=== PATIENT | female | born 1985 | race Caucasian/White ===

== ENCOUNTER → 2018-11-01 | Outpatient (CLI) | payer SELFPAY ==
--- NOTE | 2018-11-01 16:04 | RADIOLOGY REPORT (SQ) ---
EXAM DESCRIPTION: U/S [id number] TRNABD 1GES W/ODOP COMPLETED DATE/TIME: 11/01/2018 3:29 pm REASON FOR STUDY: Z34.81 ENCOUNTER FOR SUPRVSN OF NORMAL , FIRST TRIMESTER Z34.81 ENCOUNTE R FOR SUPRVSN OF NORMAL , FIRST TRIM COMPARISON: None. TECHNIQUE: Transabdominal static and realtime grayscale images acquired of the pelvis. Additional se lected spectral and color Doppler images recorded. All images stored on PACs. bHCG: Not available. CLINICAL DATES: 8 weeks 6 days LIMITATIONS: None. FINDINGS: FETUS: Single Living intrauterine . ULTRASOUND EGA: 8 weeks 4 days ULTRASOUND HEMA: 06/09/2019 EFW: Not applicable less than 20 weeks. CRL: 2.0 cm FHR: 175 beats per minute. SURVEY: No visualized anomalies. AMNIOTIC FLUID: Adequate amount. PLACENTA: Not yet developed due to early gestation. SUBCHORIONIC BLEED: No. SIZE OF BLEED: Not applicable. UTERUS: No masses. No anomalies. CERVICAL LENGTH: 5.3 cm. Closed. RIGHT ADNEXA: Normal ovary with normal vascular flow. No adnexal free fluid. 5 cm cyst. LEFT ADNEXA: Normal ovary with normal vascular flow. No adnexal free fluid. No adnexal masses. FREE FLUID: None. OTHER: No other significant finding. IMPRESSION: LIVING INTRAUTERINE . EGA 8 weeks 4 days. Trimester of : First - 0 to 13 weeks. TECHNICAL DOCUMENTATION: JOB ID: [id number] [employer]- All Rights Reserved Reading location - IP/workstation name: [email or web address]
== END ==
LOC: RAD 16:24
PROVIDERS: ATTEND Midwife
DX: Z34.81 Encounter for supervision of other normal pregnancy, first trimester (principal)
CPT/HCPCS: 76801

== ENCOUNTER 2019-06-02 05:07 | Inpatient (IN) | payer MEDICAID ==
[2019-05-30 11:53] LABS: ABSOLUTE EOSINOPHILS # (AUTO) 0.2 10^3/uL (0.0-0.6); ABSOLUTE LYMPHOCYTES (AUTO) 2.2 10^3/uL (0.5-4.7); ABSOLUTE MONOCYTES (AUTO) 0.8 10^3/uL (0.1-1.4); ABSOLUTE NEUT (AUTO) 10.9 10^3/uL (1.7-8.2); BASOPHILS % (AUTO) 0.3 % (0-2); EOSINOPHILS % (AUTO) 1.1 % (0-6); HEMATOCRIT 35.3 % (36.0-47.0); HEMOGLOBIN 12.2 g/dL (12.0-15.5); LYMPHOCYTES % (AUTO) 15.4 % (13-45); MEAN CORPUSCULAR HEMOGLOBIN 31.8 pg (27.0-33.4); MEAN CORPUSCULAR HGB CONC 34.5 g/dL (32.0-36.0); MEAN CORPUSCULAR VOLUME 92 fl (80-97); MONOCYTES % (AUTO) 5.9 % (3-13); PLATELET COUNT 320 10^3/uL (150-450); RED BLOOD COUNT 3.82 10^6/uL (3.72-5.28); RED CELL DISTRIBUTION WIDTH 13.8 % (11.5-14.0); SEGMENTED NEUTROPHILS % (AUTO) 77.3 % (42-78); TOTAL CELLS COUNTED % (AUTO) 100 %
[2019-05-30 11:56] LABS: APPEARANCE,URINE SLIGHTLY-CLOUDY; BILIRUBIN,URINE NEGATIVE (NEGATIVE); COLOR,URINE YELLOW; GLUCOSE, URINE NEGATIVE (NEGATIVE); KETONES,URINE TRACE mg/dL (NEGATIVE); LEUKOCYTE ESTERASE,URINE NEGATIVE (NEGATIVE); NITRITE,URINE NEGATIVE (NEGATIVE); PROTEIN,URINE NEGATIVE (NEGATIVE); URINE SPECIFIC GRAVITY 1.015; UROBILINOGEN,URINE NEGATIVE mg/dL (<2.0)
[2019-05-30 12:14] LABS: URINE AMPHETAMINES SCREEN NEGATIVE; URINE BARBITURATES SCREEN NEGATIVE; URINE BENZODIAZEPINES SCREEN NEGATIVE; URINE COCAINE SCREEN NEGATIVE; URINE MARIJUANA (THC) SCREEN NEGATIVE; URINE METHADONE SCREEN NEGATIVE; URINE PHENCYCLIDINE SCREEN NEGATIVE
[~2019-06-02 05:07] MED LIST: CEFAZOLIN SODIUM 2 GM in DEXTROSE 5%-WATER 100 ML IV PRN; LACTATED RINGERS 1000 ML IV PRN; LIDOCAINE 0.5% INJ-PF (5 MG/ML) 50 ML SDV SUBCUT PRN; RINGERS SOLUTION,LACTATED 1,000 ML IV PRN
[2019-06-02] MEDS ORDERED: OXYTOCIN 10 UNIT/ML VIAL ONE (07:25)
[2019-06-02] MEDS ORDERED: MIDAZOLAM 2 MG/2 ML INJ ONE (07:25)
[2019-06-02] MEDS ORDERED: EPHEDRINE SULFATE INJ 50 MG/1 ML AMPULE ONE (07:25)
[2019-06-02] MEDS ORDERED: FENTANYL CITRATE INJ/PF 100 MCG/2 ML AMPUL ONE ×2 (07:25→10:26)
[2019-06-02] MEDS ORDERED: PROPOFOL INJ 200 MG/20 ML VIAL IV ONE (07:26)
[2019-06-02] MEDS ORDERED: DIPHENHYDRAMINE HCL 50 MG/ML VIAL IV PRN (08:40)
[2019-06-02] MEDS ORDERED: MORPHINE SULFATE 10 MG/ML INJ IV PRN (08:40)
[2019-06-02] MEDS ORDERED: OXYCODONE-ACETAMINOPHEN 5-325 MG TABLET PO PRN ×3 (08:40→09:02)
[2019-06-02] MEDS ORDERED: PROMETHAZINE HCL INJ 25 MG/1 ML VIAL IV PRN ×3 (08:40→09:02)
[2019-06-02] MEDS ORDERED: MEPERIDINE HCL/PF INJ 25 MG/1 ML DISP.SYRIN IV PRN (08:40)
[2019-06-02] MEDS ORDERED: ONDANSETRON HCL INJ/PF 4 MG/2 ML SDV IV PRN (08:40)
[2019-06-02] MEDS ORDERED: FENTANYL CITRATE INJ/PF 100 MCG/2 ML AMPUL IV PRN ×3 (08:40)
[2019-06-02] MEDS ORDERED: OXYTOCIN/NORMAL SALINE 20 UNIT/1,000 ML RTUINJ IV PRN (09:02)
[2019-06-02] MEDS ORDERED: ACETAMINOPHEN 325 MG TABLET PO PRN (09:02)
[2019-06-02] MEDS ORDERED: SIMETHICONE 80 MG TAB.CHEW PO PRN (09:02)
[2019-06-02] MEDS ORDERED: DIPH/PERTUSS(ACELL)/TETANUS VAC/PF 0.5 ML SYR (>=10YO) IM PRN (09:02)
[2019-06-02] MEDS ORDERED: RINGERS SOLUTION,LACTATED 1,000 ML IV PRN (09:02)
[2019-06-02] MEDS ORDERED: HYDROMORPHONE HCL INJ/PF 2 MG/ML AMPULE IV PRN (09:02)
[2019-06-02] MEDS ORDERED: MEASLES,MUMPS&RUBELLA VACC/PF 0.5 ML VIAL SUBCUT PRN (09:02)
[2019-06-02] MEDS ORDERED: ACETAMINOPHEN 1,000 MG/100 ML RTUPB IV PRN (09:02)
--- NOTE | 2019-06-02 09:13 | PDOC DELIVERY SUMMARY ---
Delivery Summary - Maternal Hx : III Hx # Term Pregnancies: 1 Hx # Pregnancies: 0 Hx Total # of Abortions (Sponateous & Elective): 1 HEMA: 06/07/19 Gestational Age: 39.2 Ruptured Membranes: AROM Time of Rupture: 08:22 Fluids: Clear - Delivery Presentation: Vertex Heart Rate Monitoring: Done Pre-Operatively Support Person Present: Yes Location: OR : Scheduled, Repeat Placenta: Within Normal Limits Delivery of Placenta Date: 06/02/19 Delivery of Placenta Time: 08:23 - Medications Type of Anesthesia:: Spinal - Infant Assess and Care Baby 1 Male Delivery of Infant Date: 06/02/19 Delivery of Time: 08:23 at 1 minute: 9 at 5 minutes: 9 Preprinted Number On Band: [id number] Infant Skin to Skin: Yes Skin to Skin (Mins): 5 To Nursery At: 08:34 Mode of Transport: Bassinet Infant Delivery Weight: 3,900 Delivery Length: 21 in - Delivery Personnel [employer] [employer] Member: ABHISHEK COLIN RN: MAMTA GLASS MD: CHRIS CLEARY
--- NOTE | 2019-06-02 09:13 | Operative Report ---
Operative Report DATE OF SURGERY: 06/02/19 PREOPERATIVE DIAGNOSIS: Pt desires a repeat POSTOPERATIVE DIAGNOSIS: same OPERATION: Repeat c section via low transvers incision. SURGEON: CHRIS CLEARY ANESTHESIA: Spinal TISSUE REMOVED OR ALTERED: placenta COMPLICATIONS: low uterine segment adhered to anterior abdominal wall ESTIMATED BLOOD LOSS: 250 INTRAOPERATIVE FINDINGS: Low uterine segment adhered to the anterior abdominal wall PROCEDURE: Patient was taken to the OR and placed in supine position after her spinal anesthesia. She is prepared and draped in sterile fashion. Infante was placed for drainage of the bladder. Low transverse incision was made and carried down the level of the fascia. The fascial incision was made with knife and extended bilaterally with curved Brock scissors. The fascia was off the rectus muscles using sharp and blunt dissection. The rectus muscles are in the midline. There was no separation between the peritoneum and the uterine wall. Dissection was carried out the uterus from the anterior abdominal wall taking care not to injure bladder. Bladder blade was placed in uterine segment was identified. A low transverse incision was made creating a bladder flap. Bladder blade was placed low transverse uterine incision was made with the knife and extended with fingertips. The baby was delivered with some fundal pressure. Mouth and nose were suctioned free. The cord is doubly clamped and cut. Baby is passed off to the legal billing specialist in attendance. The placenta was manually extracted with trailing membranes. The uterus was externalized wrapped in a moist lap sponge. Uterine contents wiped free. U terus was closed with a running locking layer of 0 chromic suture using the second layer to imbricate the first completing a double layer closure of the uterus. The serosa was closed as much as possible with a 2-0 chromic suture. Interceed was placed over the low uterine segment to try to prevent further adhesion. The pelvis was irrigated and suctioned free of fluid the uterus was replaced in the abdomen. The abdominal wall peritoneum was closed with running 2-0 chromic stitch. Fascia was closed with a running 0 Vicryl in 2 segments. Aisha's layer was brought together with 0 plain gut stitch and the skin was closed with running subcuticular 4-0 undyed Vicryl stitch. The wound was dressed mother and baby did well.
[2019-06-02] MEDS ORDERED: KETOROLAC TROMETHAMINE INJ/PF 30 MG/1 ML SDV ONE (09:26)
[2019-06-02] MEDS ORDERED: ACETAMINOPHEN 1,000 MG/100 ML RTUPB IV ONE (09:26)
[2019-06-02] MEDS: KETOROLAC TROMETHAMINE INJ/PF 30 MG/1 ML SDV IV SCH ×2 (09:27→18:02)
[2019-06-02] MEDS ORDERED: MISOPROSTOL 0.2 MG TABLET ONE (10:06)
[2019-06-02] MEDS ORDERED: MISOPROSTOL 0.2 MG TABLET PR ONE (10:09)
[2019-06-02] MEDS ORDERED: OXYTOCIN/NORMAL SALINE 20 UNIT/1,000 ML RTUINJ ONE (10:17)
[2019-06-02] MEDS: OXYCODONE-ACETAMINOPHEN 5-325 MG TABLET PO PRN (13:31)
[2019-06-02] MEDS: PRENATAL VITAMIN W DHA CAPSULE PO SCH (13:31)
[2019-06-02] MEDS: DOCUSATE SODIUM 100 MG CAPSULE PO SCH ×2 (13:31→18:02)
[2019-06-02 23:43] LABS: HEMATOCRIT 27.9 % (36.0-47.0); HEMOGLOBIN 9.6 g/dL (12.0-15.5); MEAN CORPUSCULAR HGB CONC 34.6 g/dL (32.0-36.0); MEAN CORPUSCULAR VOLUME 93 fl (80-97); PLATELET COUNT 232 10^3/uL (150-450); RED BLOOD COUNT 3.01 10^6/uL (3.72-5.28); WHITE BLOOD COUNT 10.3 10^3/uL (4.0-10.5)
[2019-06-02] MEDS ORDERED: NORMAL SALINE 500 ML IV ONE (23:45)
[2019-06-03] MEDS: KETOROLAC TROMETHAMINE INJ/PF 30 MG/1 ML SDV IV SCH (02:52)
[2019-06-03] MEDS ORDERED: IBUPROFEN 800 MG TABLET PO SCH (06:00)
[2019-06-03 06:12] LABS: HEMOGLOBIN 8.3 g/dL (12.0-15.5); MEAN CORPUSCULAR HGB CONC 34.6 g/dL (32.0-36.0); MEAN CORPUSCULAR VOLUME 92 fl (80-97); PLATELET COUNT 201 10^3/uL (150-450); RED CELL DISTRIBUTION WIDTH 14.2 % (11.5-14.0); WHITE BLOOD COUNT 9.2 10^3/uL (4.0-10.5)
[2019-06-03] MEDS ORDERED: INFLUENZA QUAD (6MOS+) 2019-20 VAC 0.5 ML SYR IM ONE (08:00)
--- NOTE | 2019-06-03 09:10 | PDOC PROGRESS REPORT ---
Subjective-OB Progress Note for:: 06/03/19 Subjective: feeling better, trying to use inspirometer, OOB, voiding, smoker, , anxiety under control Physical Exam (OB) Vital Signs: Temp Pulse Resp BP Pulse Ox 98.3 F 103 H 18 113/65 98 06/03/19 08:04 06/03/19 08:04 06/03/19 08:04 06/03/19 08:04 06/03/19 08:04 Intake & Output 06/02/19 06/03/19 06/04/19 06:59 06:59 06:59 Output Total 1350 Balance -1350 Weight 82.1 kg - PIH/Pre-Eclampsia DTR's: 2 + Clonus: Negative Headache: Absent Epigastric Pain: No Visual Changes: No - Dressing Removed: Yes Incision: Dressing Closure Type: Sutures - Lochia Lochia Amount: Small 10-25 ml Lochia Color: Rubra/Red - Abdomen Description: Soft, Round Hernia Present: No Fundal Description: Firm, Midline Fundal Height: u/u - u/2 Objective-Diagnostic Laboratory: 06/03/19 05:52 06/02/19 06/03/19 23:37 05:52 WBC 10.3 9.2 RBC 3.01 L 2.60 L Hgb 9.6 L 8.3 L Hct 27.9 L 24.0 L MCV 93 92 MCH 32.0 32.0 MCHC 34.6 34.6 RDW 14.0 14.2 H Plt Count 232 201 Assessment and Plan(PN) - Assessment and Plan (1) delivery delivered Is this a current diagnosis for this admission?: Yes (2) Non-reassuring electronic monitoring tracing Is this a current diagnosis for this admission?: Yes (3) Anemia Qualifiers: Other causes of anemia: acute posthemorrhagic Is this a current diagnosis for this admission?: Yes - Time Spent with Patient Time with patient: Less than 15 minutes Medications reviewed and adjusted accordingly: Yes - Disposition Anticipated Discharge: Home Within: within 24 hours - tolerating low H&H
[2019-06-03] MEDS: IBUPROFEN 800 MG TABLET PO SCH ×3 (10:31→21:03)
[2019-06-03] MEDS: DOCUSATE SODIUM 100 MG CAPSULE PO SCH ×2 (10:31→18:29)
[2019-06-03] MEDS: PRENATAL VITAMIN W DHA CAPSULE PO SCH (10:31)
[2019-06-03] MEDS: OXYCODONE-ACETAMINOPHEN 5-325 MG TABLET PO PRN ×2 (10:32→18:29)
[2019-06-04] MEDS: IBUPROFEN 800 MG TABLET PO SCH ×2 (03:22→10:33)
[2019-06-04 08:35] VITALS: BP 105/78
[2019-06-04] MEDS: DOCUSATE SODIUM 100 MG CAPSULE PO SCH (10:33)
[2019-06-04] MEDS: PRENATAL VITAMIN W DHA CAPSULE PO SCH (10:33)
--- NOTE | 2019-06-04 10:57 | PDOC DISCHARGE SUMMARY ---
Impression - Admit/DC Date/PCP Admission Date/Primary Care Provider: 06/02/19 05:07 CHELA CLEARY CNM Discharge Date: 06/04/19 - Discharge Diagnosis (1) Acute blood loss anemia Is this a current diagnosis for this admission?: Yes (2) delivery delivered Is this a current diagnosis for this admission?: Yes - Additional Information Resuscitation Status: Full Code Discharge Diet: As Tolerated, Regular Discharge Activity: Activity As Tolerated, Balance Activity w/Rest, No Driving, No Lifting Over 10 Pounds, Pelvic Rest, No tub bath, Walk Frequently Referrals: CHELA CLEARY CNM [Primary Care Provider] - Prescriptions: Oxycodone HCl/Acetaminophen [Percocet 5-325 mg Tablet] 1 tab PO Q4HP PRN #20 tablet PRN Reason: For Pain Scale 3-5 Ibuprofen [Motrin 800 mg Tablet] 800 mg PO Q8HP PRN #30 tablet PRN Reason: For Pain Scale 1-3 Docusate Sodium [Colace 100 mg Capsule] 100 mg PO BID #60 capsule Ferrous Sulfate [Feosol 325 mg Tablet] 325 mg PO BID #60 tablet Home Medications: Vit/Iron Fum/Folic AC [ Tablet] 1 tab PO DAILY 12/30/14 Ibuprofen [Motrin 800 mg Tablet] 1 PO TID PRN 01/02/15 Ibuprofen [Motrin 800 mg Tablet] 800 mg PO Q8H PRN #60 tablet 01/02/15 Oxycodone HCl/Acetaminophen [Percocet 5-325 mg Tablet] 1 - 2 tab PO Q6HP PRN 01/02/15 Oxycodone HCl/Acetaminophen [Percocet 5-325 mg Tablet] 2 tab PO Q4HP PRN #30 tablet 01/02/15 Docusate Sodium [Colace 100 mg Capsule] 100 mg PO BID #60 capsule 06/04/19 Ferrous Sulfate [Feosol 325 mg Tablet] 325 mg PO BID #60 tablet 06/04/19 Ibuprofen [Motrin 800 mg Tablet] 800 mg PO Q8HP PRN #30 tablet 06/04/19 Oxycodone HCl/Acetaminophen [Percocet 5-325 mg Tablet] 1 tab PO Q4HP PRN #20 tablet 06/04/19 Results Laboratory Results: WBC 9.2 10^3/uL (4.0-10.5) 06/03/19 05:52 RBC 2.60 10^6/uL (3.72-5.28) L 06/03/19 05:52 Hgb 8.3 g/dL (12.0-15.5) L 06/03/19 05:52 Hct 24.0 % (36.0-47.0) L 06/03/19 05:52 MCV 92 fl (80-97) 06/03/19 05:52 MCH 32.0 pg (27.0-33.4) 06/03/19 05:52 MCHC 34.6 g/dL (32.0-36.0) 06/03/19 05:52 RDW 14.2 % (11.5-14.0) H 06/03/19 05:52 Plt Count 201 10^3/uL (150-450) 06/03/19 05:52 Lymph % (Auto) 15.4 % (13-45) 05/30/19 11:02 [place] % (Auto) 5.9 % (3-13) 05/30/19 11:02 Eos % (Auto) 1.1 % (0-6) 05/30/19 11:02 Baso % (Auto) 0.3 % (0-2) 05/30/19 11:02 Absolute Neuts (auto) 10.9 10^3/uL (1.7-8.2) H 05/30/19 11:02 Absolute Lymphs (auto) 2.2 10^3/uL (0.5-4.7) 05/30/19 11:02 Absolute Monos (auto) 0.8 10^3/uL (0.1-1.4) 05/30/19 11:02 Absolute Eos (auto) 0.2 10^3/uL (0.0-0.6) 05/30/19 11:02 Absolute Basos (auto) 0.0 10^3/uL (0.0-0.2) 05/30/19 11:02 Seg Neutrophils % 77.3 % (42-78) 05/30/19 11:02 Urine Color YELLOW 05/30/19 11:00 Urine Appearance SLIGHTLY-CLOUDY 05/30/19 11:00 Urine pH 7.0 (5.0-9.0) 05/30/19 11:00 Ur Specific [place] 1.015 05/30/19 11:00 Urine Protein NEGATIVE mg/dL (NEGATIVE) 05/30/19 11:00 Urine Glucose (UA) NEGATIVE mg/dL (NEGATIVE) 05/30/19 11:00 Urine Ketones TRACE mg/dL (NEGATIVE) H 05/30/19 11:00 Urine Blood NEGATIVE (NEGATIVE) 05/30/19 11:00 Urine Nitrite NEGATIVE (NEGATIVE) 05/30/19 11:00 Urine Bilirubin NEGATIVE (NEGATIVE) 05/30/19 11:00 Urine Urobilinogen NEGATIVE mg/dL (<2.0) 05/30/19 11:00 Ur Leukocyte Esterase NEGATIVE (NEGATIVE) 05/30/19 11:00 Urine WBC (Auto) 5 /HPF 05/30/19 11:00 Urine RBC (Auto) 2 /HPF 05/30/19 11:00 Urine Bacteria (Auto) 1+ /HPF 05/30/19 11:00 Squamous Epi Cells Auto 3 /HPF 05/30/19 11:00 Urine Mucus (Auto) RARE /LPF 05/30/19 11:00 Urine Ascorbic Acid 20 (NEGATIVE) H 05/30/19 11:00 Urine Opiates Screen NEGATIVE 05/30/19 11:00 Urine Methadone Screen NEGATIVE 05/30/19 11:00 Ur Barbiturates Screen NEGATIVE 05/30/19 11:00 Ur Phencyclidine Scrn NEGATIVE 05/30/19 11:00 Ur Amphetamines Screen NEGATIVE 05/30/19 11:00 U Benzodiazepines Scrn NEGATIVE 05/30/19 11:00 Urine Cocaine Screen NEGATIVE 05/30/19 11:00 U Marijuana (THC) Screen NEGATIVE 05/30/19 11:00 Blood Type Cancelled 06/03/19 05:52 Antibody Screen POSITIVE 06/01/19 11:07 Antibody Identification RHOGAM INDUCED ANTI-D 06/01/19 11:07 Screen Cancelled 06/03/19 05:52 Crossmatch See Detail 06/01/19 11:07
== END 2019-06-04 12:50 | disposition home or self-care (01) | DRG 787 ==
LOC: 2S 05:07
PROVIDERS: ADMIT Obstetrics & Gynecology; ATTEND Obstetrics & Gynecology
PROC: 10D00Z1 Extraction of Products of Conception, Low, Open Approach (ICD-10-PCS; principal; 2019-06-02 07:45)
PROC: 3E02340 Introduction of Influenza Vaccine into Muscle, Percutaneous Approach (ICD-10-PCS; 2019-06-04)
DX: O34.211 Maternal care for low transverse scar from previous cesarean delivery (principal); D62 Acute posthemorrhagic anemia; Z37.0 Single live birth; O99.334 Smoking (tobacco) complicating childbirth; F17.200 Nicotine dependence, unspecified, uncomplicated; O76 Abnormality in fetal heart rate and rhythm complicating labor and delivery; O99.02 Anemia complicating childbirth; Z23 Encounter for immunization
CPT/HCPCS: 1961; 36415; 59025; 80307; 81001; 85025; 85027; 86850; 86870; 86900; 86901; 86920; 86922; 90686; 94799; C1765; J0131; J0690; J1170; J1885; J2250; J2590; J2704; J3010; J3490; J7040; J7060; J7120